=== PATIENT | male | born 1950 | race African-American/Black ===

== ENCOUNTER → 2018-11-23 | Outpatient (CLI) | payer MEDICARE, OTHER ==
[~2018-11-23] MED LIST: DILTIAZEM180 M1 PO; HCTZ/TRIAMTEREN1 TA1 PO; OXYCODONE 5 MG PO
== END ==
LOC: MHCPAIN 09:59
DX: G89.29 Other chronic pain (principal); M47.817 Spondylosis without myelopathy or radiculopathy, lumbosacral region; M53.3 Sacrococcygeal disorders, not elsewhere classified
CPT/HCPCS: G0463